=== PATIENT | female | born 1995 | race Asian ===

== ENCOUNTER 2017-01-13 12:10 | Emergency (ER) | payer BC ==
[~2017-01-13] VITALS: Ht 154.9 cm; Wt 52.0 kg
[~2017-01-13 12:10] MED LIST: ACET-1311 PO; FEXO1TAB46 PO; IBUP-1050 PO
[2017-01-13 12:16] VITALS: TEMP 36.9; Ht 154.9 cm; Wt 52.0 kg
[2017-01-13] MEDS ORDERED: IBUPROFEN 600 MG TAB PO STA (12:31)
[2017-01-13] MEDS ORDERED: LIDOCAINE/EPINEPH/TETRACAINE 1 EA SYR EXT STA (12:31)
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
--- NOTE | 2017-01-13 13:08 | DIAGNOSTIC IMAGING REPORT ---
RIGHT KNEE 3 VIEWS CLINICAL HISTORY: Fall with right knee pain. FINDINGS: AP, crosstable lateral, and sunrise views of the right knee are obtained. No prior studies are available for comparison at the time of dictation. The examination is suboptimal as the patient was unable to fully extend the knee. The skeletal structures are well mineralized. No fracture is seen. The joint spaces of the knee are well-maintained. No joint effusion is identified. The overlying soft tissues are within normal limits. IMPRESSION: No acute bony abnormality is identified in the right knee. Electronically signed by: Jeet Machado M.D. 01/13/2017 1:07 PM Dictated Date/Time: 01/13/2017 1:06 PM
--- NOTE | 2017-01-13 13:09 | DIAGNOSTIC IMAGING REPORT ---
RIGHT ELBOW 3 VIEWS CLINICAL HISTORY: Fall with right elbow pain. FINDINGS: 3 views of the right elbow are obtained No prior studies are available for comparison at the time of dictation. The skeletal structures are well mineralized. No fracture is seen. The joint spaces of the elbow are well-maintained. No joint effusion is identified. Mild dorsal soft tissue swelling is noted. IMPRESSION: Mild soft tissue swelling with no radiographic evidence of right elbow fracture. Electronically signed by: Jeet Machado M.D. 01/13/2017 1:08 PM Dictated Date/Time: 01/13/2017 1:07 PM
[2017-01-13 14:13] VITALS: BP 107/65; PULSE 65; O2SAT 99
== END 2017-01-13 14:16 | disposition home or self-care (01) ==
LOC: C.EDB 12:11 → C.EDD 14:16
DX: S50.01XA Contusion of right elbow, initial encounter (principal); S80.01XA Contusion of right knee, initial encounter; S50.311A Abrasion of right elbow, initial encounter; S80.211A Abrasion, right knee, initial encounter; V18.0XXA Pedal cycle driver injured in noncollision transport accident in nontraffic accident, initial encounter

== ENCOUNTER 2017-09-08 10:06 | Inpatient (IN) | payer BC, OTHER ==
[~2017-09-08] VITALS: Ht 154.9 cm; Wt 52.0 kg
--- NOTE | 2017-09-08 10:22 | EMERGENCY ROOM VISIT NOTE ---
History Report prepared by William: David Carr Under the Supervision of: Dr. Jarrell Capone M.D. First contact with patient: 10:13 Chief Complaint: MENTAL HEALTH EVALUATION Stated Complaint: 302 MENTAL HEALTH EVALUATION History of Present Illness The patient is a 22 year old female with a 302 warrant who presents to the Emergency Room with worsening sadness over the past few days after her boyfriend broke up with her. Per the psychiatric rifle case repairer, [facility] was at the patient's apartment prior to arrival, and the patient was crying hysterically. When asked if the patient had suicidal ideations, she said that she would take her whole bottle of Zoloft and Tylenol and get in a bath tub and "wait to ". The patient states that she did say those things, but she would not have actually done them. She states that she does not have those thoughts of hurting herself anymore. The patient says that she has not taken any pills to try to hurt herself over the past few days. She notes that she did have a suicide attempt 2 years ago [address] she lived. The patient says that she saw her psychiatrist 3 weeks ago, and saw her therapist last week. She says that nobody is hurting her. The patient denies any recent drug use, and adds that she is not drunk. She notes no chronic medical conditions. She denies any abdominal pain, rashes, or leg swelling. Source of History: patient, other (psych rifle case repairer) Onset: Over past few days Position: other (global - sadness) Quality: other (after boyfriend broke up with patient) Timing: worsening Associated Symptoms: No abdominal pain, No rash Note: Suicidal statements this morning. Denies leg swelling. Review of Systems See HPI for pertinent positives & negatives. A total of 10 systems reviewed and were otherwise negative. Past Medical & Surgical Medical Problems: (1) history of ulcers (2) Major depressive disorder, recurrent severe without psychotic features (3) none Family History Unknown Social History Smoking Status: Never Smoker Smokeless Tobacco Use: No Marital Status: single Occupation Status: [employer] student Current/Historical Medications Scheduled Sertraline (Zoloft), 25 MG PO QAM Allergies Coded Allergies: Lactose (Verified Allergy, Intermediate, LACTOSE INTOLERANT, 09/08/17) Latex1 -Allergic Contact Dermititis (Unverified Allergy, Intermediate, RASH, 09/08/17) Physical Exam Vital Signs Date Time Temp Pulse Resp B/P (MAP) Pulse Ox O2 Delivery O2 Flow Rate FiO2 09/08/17 12:21 85 20 112/76 99 Room Air 09/08/17 10:21 37.0 91 16 120/79 98 Physical Exam GENERAL: Patient is sad appearing, crying, in mild distress. HEENT: No acute trauma, normocephalic atraumatic, mucous membranes moist, no nasal congestion, no scleral icterus. NECK: No stridor, no adenopathy, no meningismus, trachea is midline. LUNGS: No dyspnea. Clear to auscultation and equal bilaterally. No wheeze, no rhonchi. HEART: Regular rate and rhythm. No murmurs, rubs, gallops appreciated. ABDOMEN: Soft, nontender, bowel sounds positive, no masses appreciated, no peritonitis. BACK: No midline tenderness, no CVA tenderness EXTREMITIES: Normal motion all extremities, no cyanosis, no edema. NEUROLOGIC: Alert and oriented, no acute motor or sensory deficits, no focal weakness, cranial nerves grossly intact. SKIN: No rash, no jaundice, no diaphoresis. PSYCH: Admits suicidal ideation with plan this morning but states this has gone away. Medical Decision & Procedures Laboratory Results 09/08/17 10:50 Red Blood Count 4.67, Mean Corpuscular Volume 83.5, Mean Corpuscular Hemoglobin 28.5, Mean Corpuscular Hemoglobin Concent 34.1, Mean Platelet Volume 9.2, Neutrophils (%) (Auto) 75.8, Lymphocytes (%) (Auto) 18.9, Monocytes (%) (Auto) 4.9, Eosinophils (%) (Auto) 0.2, Basophils (%) (Auto) 0.2, Neutrophils # (Auto) 4.06, Lymphocytes # (Auto) 1.01, Monocytes # (Auto) 0.26, Eosinophils # (Auto) 0.01, Basophils # (Auto) 0.01 09/08/17 10:50 Test 09/08/17 10:25 09/08/17 10:50 Urine Color DK YELLOW Urine Appearance CLEAR (CLEAR) Urine pH 5.5 (4.5-7.5) Urine Specific [place] 1.029 (1.000-1.030) Urine Protein 1+ (NEG) Urine Glucose (UA) NEG (NEG) Urine Ketones 3+ (NEG) Urine Occult Blood 2+ (NEG) Urine Nitrite NEG (NEG) Urine Bilirubin NEG (NEG) Urine Urobilinogen NEG (NEG) Urine Leukocyte Esterase NEG (NEG) Urine WBC (Auto) 1-5 /hpf (0-5) Urine RBC (Auto) 0-4 /hpf (0-4) Urine Hyaline Casts (Auto) 1-5 /lpf (0-5) Urine Epithelial Cells (Auto) >30 /lpf (0-5) Urine Bacteria (Auto) NEG (NEG) Urine Test NEG (NEG) Urine Opiates Screen NEG (NEG) Urine Methadone, Qualitative NEG (NEG) Urine Barbiturates NEG (NEG) Urine Phencyclidine (PCP) Level NEG (NEG) Ur Amphetamine/Methamphetamine NEG (NEG) MDMA (Ecstasy) Screen NEG (NEG) Urine Benzodiazepines Screen NEG (NEG) Urine Cocaine Metabolite NEG (NEG) Urine Marijuana (THC) NEG (NEG) White Blood Count 5.35 K/uL (4.8-10.8) Red Blood Count 4.67 M/uL (4.2-5.4) Hemoglobin 13.3 g/dL (12.0-16.0) Hematocrit 39.0 % (37-47) Mean Corpuscular Volume 83.5 fL (80-100) Mean Corpuscular Hemoglobin 28.5 pg (25-34) Mean Corpuscular Hemoglobin Concent 34.1 g/dl (32-36) Platelet Count 299 K/uL (130-400) Mean Platelet Volume 9.2 fL (7.4-10.4) Neutrophils (%) (Auto) 75.8 % Lymphocytes (%) (Auto) 18.9 % Monocytes (%) (Auto) 4.9 % Eosinophils (%) (Auto) 0.2 % Basophils (%) (Auto) 0.2 % Neutrophils # (Auto) 4.06 K/uL (1.4-6.5) Lymphocytes # (Auto) 1.01 K/uL (1.2-3.4) Monocytes # (Auto) 0.26 K/uL (0.11-0.59) Eosinophils # (Auto) 0.01 K/uL (0-0.5) Basophils # (Auto) 0.01 K/uL (0-0.2) RDW Standard Deviation 38.5 fL (36.4-46.3) RDW Coefficient of Variation 12.8 % (11.5-14.5) Immature Granulocyte % (Auto) 0.0 % Immature Granulocyte # (Auto) 0.00 K/uL (0.00-0.02) Anion Gap 10.0 mmol/L (3-11) Est Creatinine Clear Calc Drug Dose 100.1 ml/min Estimated GFR () 145.6 Estimated GFR (Non- 125.7 BUN/Creatinine Ratio 23.3 (10-20) Calcium Level 9.0 mg/dl (8.5-10.1) Total Bilirubin 0.5 mg/dl (0.2-1) Aspartate Amino Transf (AST/SGOT) 13 U/L (15-37) Alanine Aminotransferase (ALT/SGPT) 14 U/L (12-78) Alkaline Phosphatase 52 U/L (45-117) Total Protein 8.5 gm/dl (6.4-8.2) Albumin 4.5 gm/dl (3.4-5.0) Globulin 4.0 gm/dl (2.5-4.0) Albumin/Globulin Ratio 1.1 (0.9-2) Thyroid Stimulating Hormone (TSH) 1.420 uIu/ml (0.300-4.500) Salicylates Level < 1.7 mg/dl (2.8-20) Acetaminophen Level < 2 ug/ml (10-30) Ethyl Alcohol mg/dL < 3.0 mg/dl (0-3) Laboratory results as reviewed by me. ED Course 1014: The patient was evaluated in room A7. A complete history and physical exam was performed. 1144: Rosanna, the psychiatric rifle case repairer is evaluating the patient. 1330: I was notified that the patient has been accepted to [address] [place] [address] for further evaluation and treatment. Medical Decision Differential: Mood Disorder, Overdose, Infectious, Electrolyte Abnormality, Cardiac, Hepatic, Endocrine, Toxicologic, Neurologic, amongst other pathologies entertained. 22 yr old female arrives crying and clearly depressed. Admits suicide ideation with plan this morning though claims this has resolved now. I do not feel she is safe for discharge given her history and 302 petition. She had prolonged discussion with Psych Liaison and is willing to sign in and get herself help. Medically clear. A bit dehydrated but drinking and making tears thus I do not feel IV hydration required. Medication Reconcilliation Current Medication List: was personally reviewed by me Blood Pressure Screening Patient's blood pressure: Normal blood pressure Impression Primary Impression: Depression Additional Impression: Suicidal ideation Scribe Attestation The scribe's documentation has been prepared under my direction and personally reviewed by me in its entirety. I confirm that the note above accurately reflects all work, treatment, procedures, and medical decision making performed by me. Departure Information Dispostion Mental Health Acute Care (to [address] [place] [address]) Referrals No Doctor, Assigned (PCP) Patient Instructions My [facility] Problem Qualifiers
[2017-09-08] MEDS ORDERED: SERT25TA PO (10:31)
[2017-09-08 11:11] LABS: BASO % 0.2 %; BASO ABS # 0.01 K/uL (0-0.2); EOS % 0.2 %; EOS ABS # 0.01 K/uL (0-0.5); HEMOGLOBIN 13.3 g/dL (12.0-16.0); LYMPH % 18.9 %; LYMPH ABS # 1.01 K/uL (1.2-3.4); MEAN CELL VOLUME 83.5 fL (80-100); MEAN CORPUSCULAR HEMOGLOBIN 28.5 pg (25-34); MEAN CORPUSCULAR HGB CONC 34.1 g/dl (32-36); MEAN PLATELET VOLUME 9.2 fL (7.4-10.4); MONO % 4.9 %; MONO ABS # 0.26 K/uL (0.11-0.59); NEUT % 75.8 %; NEUT ABS # 4.06 K/uL (1.4-6.5); PLATELET COUNT 299 K/uL (130-400); RED CELL DISTRIBUTION WIDTH CV 12.8 % (11.5-14.5); RED CELL DISTRIBUTION WIDTH SD 38.5 fL (36.4-46.3); WHITE BLOOD COUNT 5.35 K/uL (4.8-10.8)
[2017-09-08 11:27] LABS: ALBUMIN 4.5 gm/dl (3.4-5.0); CREATININE 0.67 mg/dl (0.60-1.20); POTASSIUM 3.5 mmol/L (3.5-5.1)
[2017-09-08 11:38] LABS: TOTAL PROTEIN 8.5 gm/dl (6.4-8.2)
[2017-09-08] MEDS ORDERED: hydrOXYzine HCL 25 MG TAB PO PRN ×2 (12:00)
[2017-09-08] MEDS ORDERED: ALUMINUM/MAGNESIUM SUSP 30 ML UDC PO PRN (12:00)
[2017-09-08] MEDS ORDERED: BISMUTH SUBSALICYLATE PER ML OMNICELL CHARGE PO PRN (12:00)
[2017-09-08] MEDS ORDERED: ACETAMINOPHEN 325 MG TAB PO PRN (12:00)
[2017-09-08] MEDS ORDERED: MAGNESIUM HYDROXIDE SUSP 30 ML UDC PO PRN (12:00)
[2017-09-08] MEDS ORDERED: SODIUM CHLORIDE 0.65% NA SOLN 45 ML (OCEAN) PRN (12:00)
[2017-09-08 12:21] VITALS: O2SAT 99
[2017-09-08 13:06] VITALS: BP 113/76; PULSE 98; TEMP 37.1; Ht 154.9 cm; Wt 52.0 kg
--- NOTE | 2017-09-08 13:47 | Psychiatric History & Physical ---
History Date of Service Sep 08, 2017. Identifying Data Yenny Loomis is a 22-year-old female admitted voluntarily on Sep 08, 2017 at 12:55 who was brought to the emergency department by police after the patient called can help feeling depressed and having suicidal thoughts. Warrant was issued with the petitioners statement but the patient eventually signed in voluntarily. Information is gathered from the patient and considered to be reliable. Chief Complaint "My boyfriend and I broke up yesterday.". 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 She is currently in treatment with a nurse practitioner, Vee, at [facility], and a therapist Maude Goodman at [facility]. She reports that her mood has been up and down over recent semesters directly related to the up and down relationship she has been having with her boyfriend. Although she did not necessarily see it coming, she and her boyfriend broke up yesterday after an argument. She became extremely and acutely depressed. She spoke with her mother, roommates in the wake of the breakup but continued to cry. She did not sleep last night and started having suicidal thinking. Today, she called the crisis hotline and they sent a mobile curing room worker to her home. When the patient told him about the suicidal thinking, they filled out a warrant called the police and had her brought to the emergency department. The patient feels that she was ambushed by this as she said she had no intent to follow through on these but was honest about having the thoughts. She is attempting to minimize, not seeing the seriousness of her risk factors and wanting discharge as soon as possible. She is requesting to sign her 72 hour notice. As above, the patient says her depression has been up and down over the last several semesters. Today she describes herself as "sad but okay". She admits to suicidal thinking, admits to saying that she would cut her wrists, take an overdose and sit in the bathtub but denies that she had any intent to follow through. She reports good sleep in recent weeks getting 8 hours of sleep per night. Her appetite has been down since being on Zoloft the last 3 weeks. Her energy is okay. She is currently quite anxious and she is "freaked out about being in the hospital". She reports chronic anxiety that dates back, possibly as early as high school. She hasn't history of panic attacks that are less lately but last semester were occurring about once per week. She feels like the room is closing in, short of breath, elevated heart rate, tremors and sweating. She denies ever having had any auditory or visual hallucinations. She denies problems with anger. She does have thoughts and impulses to cut herself and will superficially scratch her arm or her leg but rarely ever breaks the skin. She says "I like the way it feels". She denies any history of eating disordered behaviors. She denies any discrete episodes of euphoric mood, sleeplessness or pleasure seeking behaviors that would be congruent with bipolar disorder. Past Psychiatric History Current OP Treatment: psychiatrist (Vee BISHOP at [facility]), therapist (Maude Goodman at [facility]) Prior OP Treatment: therapist Prior Psych Hospitalizations: none Access to a Gun: No Suicide Attempts: Yes (2-3 years ago attempted suicide by lying down in traffic ) Past Medication Trials None Past Medical/Surgical History History of Concussion/Seizure: No (1) none Allergies Allergies: Coded Allergies: Lactose (Verified Allergy, Intermediate, LACTOSE INTOLERANT, 09/08/17) Latex1 -Allergic Contact Dermititis (Unverified Allergy, Intermediate, RASH, 09/08/17) Home Medications Scheduled Sertraline (Zoloft), 25 MG PO QAM Family History Unknown Patient is adopted and knows nothing of her biological family Alcohol Use Alcohol Use In Past 12 Months: Yes ("Occasionally a mixed drink with friends" < 1x/month) AUDIT Total Score: 1 Smoking Use Smoking Status: Never Smoker Substance History Denies Personal History Lives in: [place] with roommates Childhood: Raised by her adoptive parents. She was adopted at the age of 2 or 3 from [place]. Her father when she was very young of cancer. She has 1 younger adopted sister. She reports a good relationship with her mother. Education: started college (is scheduled to graduate in December with a degree in Khmer. Current GPA 3.5 or so) Work History: Works at the [employer] on campus part-time Relationship History: never Children: none Legal History: none Psychological Trauma History: Denies Hx Traumatic Event Review of Systems Constitutional: denies no symptoms reported, denies see HPI, denies chills, denies diaphoresis, denies fever, denies malaise, denies weakness, denies other Eyes: denies: no symptoms, as stated in HPI, eye pain, tearing, itching, redness, discharge, double vision, visual changes, blurred vision, photophobia, other ENT: denies: no symptoms reported, see HPI, ear pain, ear discharge, loss of hearing, tinnitus, nasal pain, nasal congestion, rhinorrhea, epistaxis, sore throat, stidor, throat swelling, mouth pain, mouth swelling, dental pain, gum swelling, other Cardiovascular: reports: diaphoresis (with anxiety), palpitations (with anxiety ) Respiratory: reports: short of breath (with anxiety) Gastrointestinal: nausea (nausea, sometimes associated with Zoloft, other times associated with not eating) Genitourinary - Female: denies: no symptoms, see HPI, rash, amenorrhea, dysmenorrhea, menorrhagia, metrorrhagia, , vaginal bleeding, vaginal itching, vaginal discharge, vulvadynia, other Musculoskeletal: denies no symptoms reported, denies see HPI, denies back pain , denies gout, denies joint pain, denies joint swelling, denies muscle pain, denies muscle stiffness, denies neck pain, denies other Integumentary: denies no symptoms reported, denies see HPI, denies change in color, denies change in hair/nails, denies dryness, denies lesions, denies lumps , denies rash, denies other Neurologic: denies: no symptoms, see HPI, headache, numbness, paresthesias, pre -existing deficit, seizure, tingling, tremors, general weakness, tics, focal weakness, vertigo, lethargy, memory loss, dizziness, other Endocrine: denies: no symptoms, as stated in HPI, cold intolerance, heat intolerance, hair changes, goiter, polydipsia, polyuria, skin changes, other Hematologic / Lymphatic: denies: no symptoms, as stated in HPI, abnormal clotting, adenopathy, anemia, easy bleeding, easy bruising, gums bleeding, petechiae, other Examination Physical Examination Exam performed by Dr. Capone in the emergency Department has been reviewed and accepted his medical clearance for our unit Vital Signs Vital Signs Past 12 Hours Date Time Temp Pulse Resp B/P (MAP) Pulse Ox O2 Delivery O2 Flow Rate FiO2 09/08/17 13:06 37.1 98 20 113/76 09/08/17 12:21 85 20 112/76 99 Room Air 09/08/17 10:21 37.0 91 16 120/79 98 Laboratory Results Last 24 Hours Test 09/08/17 10:25 09/08/17 10:50 Urine Color DK YELLOW Urine Appearance CLEAR Urine pH 5.5 Urine Specific [place] 1.029 Urine Protein 1+ Urine Glucose (UA) NEG Urine Ketones 3+ Urine Occult Blood 2+ Urine Nitrite NEG Urine Bilirubin NEG Urine Urobilinogen NEG Urine Leukocyte Esterase NEG Urine WBC (Auto) 1-5 /hpf Urine RBC (Auto) 0-4 /hpf Urine Hyaline Casts (Auto) 1-5 /lpf Urine Epithelial Cells (Auto) >30 /lpf Urine Bacteria (Auto) NEG Urine Test NEG Urine Opiates Screen NEG Urine Methadone, Qualitative NEG Urine Barbiturates NEG Urine Phencyclidine (PCP) Level NEG Ur Amphetamine/Methamphetamine NEG MDMA (Ecstasy) Screen NEG Urine Benzodiazepines Screen NEG Urine Cocaine Metabolite NEG Urine Marijuana (THC) NEG White Blood Count 5.35 K/uL Red Blood Count 4.67 M/uL Hemoglobin 13.3 g/dL Hematocrit 39.0 % Mean Corpuscular Volume 83.5 fL Mean Corpuscular Hemoglobin 28.5 pg Mean Corpuscular Hemoglobin Concent 34.1 g/dl Platelet Count 299 K/uL Mean Platelet Volume 9.2 fL Neutrophils (%) (Auto) 75.8 % Lymphocytes (%) (Auto) 18.9 % Monocytes (%) (Auto) 4.9 % Eosinophils (%) (Auto) 0.2 % Basophils (%) (Auto) 0.2 % Neutrophils # (Auto) 4.06 K/uL Lymphocytes # (Auto) 1.01 K/uL Monocytes # (Auto) 0.26 K/uL Eosinophils # (Auto) 0.01 K/uL Basophils # (Auto) 0.01 K/uL RDW Standard Deviation 38.5 fL RDW Coefficient of Variation 12.8 % Immature Granulocyte % (Auto) 0.0 % Immature Granulocyte # (Auto) 0.00 K/uL Sodium Level 139 mmol/L Potassium Level 3.5 mmol/L Chloride Level 106 mmol/L Carbon Dioxide Level 23 mmol/L Anion Gap 10.0 mmol/L Blood Urea Nitrogen 16 mg/dl Creatinine 0.67 mg/dl Est Creatinine Clear Calc Drug Dose 100.1 ml/min Estimated GFR () 145.6 Estimated GFR (Non- 125.7 BUN/Creatinine Ratio 23.3 Random Glucose 91 mg/dl Calcium Level 9.0 mg/dl Total Bilirubin 0.5 mg/dl Aspartate Amino Transf (AST/SGOT) 13 U/L Alanine Aminotransferase (ALT/SGPT) 14 U/L Alkaline Phosphatase 52 U/L Total Protein 8.5 gm/dl Albumin 4.5 gm/dl Globulin 4.0 gm/dl Albumin/Globulin Ratio 1.1 Thyroid Stimulating Hormone (TSH) 1.420 uIu/ml Salicylates Level < 1.7 mg/dl Acetaminophen Level < 2 ug/ml Ethyl Alcohol mg/dL < 3.0 mg/dl Mental Examination During interview pt is: alert and oriented, cooperative Appearance: appropriately dressed, appropriately groomed Eye contact is: good Motor behavior is: no abnormal motor movements Speech: normal in rate, rhythm & volume Affect: depressed, flat, irritable Mood is: depressed Thought process: goal directed, clear, coherent Thought content: reality based without delusions Suicidal thought are: present, Plan: denied, Intent: denied Homicidal thoughts are: denied Hallucinations: denies auditory, denies visual Cognition: memory grossly intact, attention grossly intact, language grossly intact Intelligence estimated to be: average Insight: limited Judgement: limited Impression / Recommendations Impression 22-year-old [employer] senior, admitted on a voluntary basis after calling can help in the state of depression with suicidal thinking. She was started on Zoloft 25 mg 3 weeks ago by her outpatient provider and today we will increase this to 50 mg daily. She has already requested to submit her 72 hour notice and so we will need to get supplemental information from her mother and roommates, all of whom may be coming into the hospital to visit later today. We will coordinate her care with her current outpatient providers. She would like to continue in school and finish her college career in December. She objects to being in the hospital based on the fact she had no plan to follow through with her thoughts and is willing to continue in outpatient treatment. At this time however she requires inpatient treatment due to the risk of self-harm if discharged. Inventory Assets Strengths: Intelligence, support from family and roommates Needs: To explore additional healthy coping strategies Risk Factors Assessment : No /single/: Yes Higher / Fall in social status: No Access to guns: No Health problems: No Mental Health Diagnoses: Yes Substance use disorders: No Previous attempt: Yes Previous psychiatric stay: No Smoker: No Protective Factors Assessment : No Responsible for young children: No Employed: No Stable relationships: No Supportive family: No Recommendations (1) Major depressive disorder, recurrent severe without psychotic features 09/08 - increase Zoloft to 50 mg daily - Obtain supplemental information from patient's mother and roommates - Every 15 minute checks for safety - Encourage participation in group and individual counseling - Coordinate outpatient care with current providers - Patient has submitted 72 hour notice. Will need to continue to gather information for the need for inpatient treatment -Contact University as needed given the fact that the patient wants to continue in school this semester - Assist the patient to explore and utilize healthy coping strategies Dr. Zena Roth has personally been involved in the review of the above case and development of these recommendations. CPT Code Initial Hospital Care: 37482
[2017-09-08] MEDS ORDERED: INFLUENZA ADMINISTRATION CHARGE ONE (15:00)
[2017-09-08] MEDS ORDERED: INFLUENZA VIRUS QUAD VACCINE 0.5 ML SYR IM. ONE (15:00)
[2017-09-08] MEDS ORDERED: NURSING VERBAL MED ORDER ONE (17:45)
[2017-09-08] MEDS ORDERED: SERTRALINE HCL 50 MG TAB PO ONE (18:00)
[2017-09-09 06:49] VITALS: BP_SYST 108; BP_SYST 111; BP_DIAS 72; BP_DIAS 78; PULSE 69; PULSE 85; TEMP 36.8
--- NOTE | 2017-09-09 08:32 | Psychiatric Progress Notes ---
Progress Note Date of Service Sep 09, 2017. Interval History Yenny Loomis is a 22-year-old female admitted voluntarily on Sep 08, 2017 at 12:55 who was brought to the emergency department by police after the patient called Can Help feeling depressed and having suicidal thoughts. Warrant was issued with the petitioners statement but the patient eventually signed in voluntarily. Chief Complaint "I think things have anuj going well, I'm better, I'd like to leave". Sleep Information Total Hours of Sleep: 7.75 Meal Information Percent of Dinner Consumed: 50 Mental Status Exam During interview pt is: alert and oriented, cooperative Appearance: appropriately dressed, appropriately groomed Eye contact is: good Motor behavior is: no abnormal motor movements Speech: normal in rate, rhythm & volume Affect: depressed, flat, irritable Mood is: depressed Thought process: goal directed, clear, coherent Thought content: reality based without delusions Suicidal thought are: present, Plan: denied, Intent: denied Homicidal thoughts are: denied Hallucinations: denies auditory, denies visual Cognition: memory grossly intact, attention grossly intact, language grossly intact Intelligence estimated to be: average Insight: limited Judgement: limited Impression 22-year-old [employer] [facility] senior, admitted on a voluntary basis after calling can help in the state of depression with suicidal thinking. She was started on Zoloft 25 mg 3 weeks ago by her outpatient provider and today we will increase this to 50 mg daily. She has already requested to submit her 72 hour notice and so we will need to get supplemental information from her mother and roommates, all of whom may be coming into the hospital to visit later today. We will coordinate her care with her current outpatient providers. She would like to continue in school and finish her college career in December. She objects to being in the hospital based on the fact she had no plan to follow through with her thoughts and is willing to continue in outpatient treatment. At this time however she requires inpatient treatment due to the risk of self-harm if discharged. Plan (1) Major depressive disorder, recurrent severe without psychotic features 09/08 - Increase Zoloft to 50 mg daily - Obtain supplemental information from patient's mother and roommates - Every 15 minute checks for safety - Encourage participation in group and individual counseling - Coordinate outpatient care with current providers - Patient has submitted 72 hour notice. Will need to continue to gather information for the need for inpatient treatment - Contact University as needed given the fact that the patient wants to continue in school this semester - Assist the patient to explore and utilize healthy coping strategies Discharge / Aftercare Planning Primary Care Physician: Name: Pt couldn't remember her name Therapist: Name: Buck Santoro Date of Appointment: Sep 10, 2017 [employer] Hand: Name: None Inventory Assets Strengths: Intelligence, support from family and roommates Needs: To explore additional healthy coping strategies Risk Factors Assessment : No /single/: Yes Higher / Fall in social status: No Health problems: No Mental Health Diagnoses: Yes Substance use disorders: No Previous attempt: Yes Previous psychiatric stay: No Smoker: No Protective Factors Assessment : No Responsible for young children: No Employed: No Stable relationships: No Supportive family: No Data Vital Signs Last 24 Hrs: Date Time Temp Pulse Resp B/P (MAP) Pulse Ox O2 Delivery O2 Flow Rate FiO2 09/09/17 06:49 36.8 85 16 108/72 69 111/78 09/08/17 13:06 37.1 98 20 113/76 09/08/17 12:21 85 20 112/76 99 Room Air 09/08/17 10:21 37.0 91 16 120/79 98 Meds Administered Last 24 Hrs: Meds Administered (Past 24Hrs) Medications (Trade) Dose Ordered Sig/Franny Route Start Time Stop Time Status Last Admin Dose Admin Hydroxyzine HCl (Vistaril Tab) 50 mg HSZ PRN PO 09/08/17 12:00 10/08/17 11:59 09/08/17 21:36 50 MG Sertraline HCl (Zoloft Tab) 50 mg QAM PO 09/09/17 09:00 10/09/17 08:59 09/09/17 08:22 50 MG Sertraline HCl (Zoloft Tab) 25 mg NOW ONCE PO 09/08/17 18:00 09/08/17 18:01 DC 09/08/17 17:40 25 MG Lab Results Last 24 Hrs: Last 24 Hours Test 09/08/17 10:25 09/08/17 10:50 Urine Color DK YELLOW Urine Appearance CLEAR Urine pH 5.5 Urine Specific [place] 1.029 Urine Protein 1+ Urine Glucose (UA) NEG Urine Ketones 3+ Urine Occult Blood 2+ Urine Nitrite NEG Urine Bilirubin NEG Urine Urobilinogen NEG Urine Leukocyte Esterase NEG Urine WBC (Auto) 1-5 /hpf Urine RBC (Auto) 0-4 /hpf Urine Hyaline Casts (Auto) 1-5 /lpf Urine Epithelial Cells (Auto) >30 /lpf Urine Bacteria (Auto) NEG Urine Test NEG Urine Opiates Screen NEG Urine Methadone, Qualitative NEG Urine Barbiturates NEG Urine Phencyclidine (PCP) Level NEG Ur Amphetamine/Methamphetamine NEG MDMA (Ecstasy) Screen NEG Urine Benzodiazepines Screen NEG Urine Cocaine Metabolite NEG Urine Marijuana (THC) NEG White Blood Count 5.35 K/uL Red Blood Count 4.67 M/uL Hemoglobin 13.3 g/dL Hematocrit 39.0 % Mean Corpuscular Volume 83.5 fL Mean Corpuscular Hemoglobin 28.5 pg Mean Corpuscular Hemoglobin Concent 34.1 g/dl Platelet Count 299 K/uL Mean Platelet Volume 9.2 fL Neutrophils (%) (Auto) 75.8 % Lymphocytes (%) (Auto) 18.9 % Monocytes (%) (Auto) 4.9 % Eosinophils (%) (Auto) 0.2 % Basophils (%) (Auto) 0.2 % Neutrophils # (Auto) 4.06 K/uL Lymphocytes # (Auto) 1.01 K/uL Monocytes # (Auto) 0.26 K/uL Eosinophils # (Auto) 0.01 K/uL Basophils # (Auto) 0.01 K/uL RDW Standard Deviation 38.5 fL RDW Coefficient of Variation 12.8 % Immature Granulocyte % (Auto) 0.0 % Immature Granulocyte # (Auto) 0.00 K/uL Sodium Level 139 mmol/L Potassium Level 3.5 mmol/L Chloride Level 106 mmol/L Carbon Dioxide Level 23 mmol/L Anion Gap 10.0 mmol/L Blood Urea Nitrogen 16 mg/dl Creatinine 0.67 mg/dl Est Creatinine Clear Calc Drug Dose 100.1 ml/min Estimated GFR () 145.6 Estimated GFR (Non- 125.7 BUN/Creatinine Ratio 23.3 Random Glucose 91 mg/dl Calcium Level 9.0 mg/dl Total Bilirubin 0.5 mg/dl Aspartate Amino Transf (AST/SGOT) 13 U/L Alanine Aminotransferase (ALT/SGPT) 14 U/L Alkaline Phosphatase 52 U/L Total Protein 8.5 gm/dl Albumin 4.5 gm/dl Globulin 4.0 gm/dl Albumin/Globulin Ratio 1.1 Thyroid Stimulating Hormone (TSH) 1.420 uIu/ml Salicylates Level < 1.7 mg/dl Acetaminophen Level < 2 ug/ml Ethyl Alcohol mg/dL < 3.0 mg/dl
[2017-09-09] MEDS ORDERED: SERTRALINE HCL 50 MG TAB PO SCH ×2 (09:00)
[2017-09-09] MEDS ORDERED: SERT50TA PO (12:00)
--- NOTE | 2017-09-09 12:12 | Discharge Instructions ---
Discharge Information Report Includes Report will include the: Discharge Instructions & Summary Admission Admission Date / Time: Sep 08, 2017 at 12:55 Reason for Admission: Depressive Disorder Nos Discharge Discharge Diagnosis / Problem: Depression Condition at Discharge: Good Discharge Goals Goal(s): Improve function, Improve disease control, Learn about illness, Therapeutic intervention Activity Recommendations Activity Limitations: per Instructions/Follow-up section . Instructions / Follow-Up Instructions / Follow-Up . SPECIAL CARE INSTRUCTIONS: 1. Follow through with your scheduled aftercare appointments. If unable to keep an appointment, please call to reschedule. 2. Take your medication only as prescribed. Medication should not be changed or stopped without the approval of your doctor. In the event of worsening symptoms or concerns about side effects, contact your doctor immediately. 3. Utilize new healthy coping skills, anger management skills, and stress management skills learned during your hospitalization. Journal feelings and process them with a support person. Identify stressors or situations that may result in relapse, deterioration or inappropriate behaviors and develop a plan to deal with those issues. 4. If your coping skills are ineffective and you are in crisis, contact your outpatient providers for direction. If unable to reach your providers, please call the CAN HELP LINE AT or go to the closest Emergency Room. 5. Avoid alcohol and un-prescribed drugs. 6. You have been provided with the Mental Health Advance Directives Pamphlet for your review. AFTERCARE APPOINTMENTS: * Please call your insurance company prior to your scheduled appointment to confirm your aftercare providers are covered. Take your insurance information to your appointments. . Discharge / Aftercare Planning Primary Care Physician: Name: Pt couldn't remember her name Therapist: Name Of Therapist: Buck Santoro Date of Appointment: Sep 10, 2017 Link Trainer: Name: None . Follow-Up Care Plan for Follow-Up Care: See above. Current Hospital Diet Patient's current hospital diet: Low Lactose Diet Discharge Diet Recommended Diet: Low Lactose Diet Procedures Procedures Performed: No Pending Studies Pending Studies at Discharge: No Medical Emergencies . Who to Call and When: Medical Emergencies: For questions or emergencies related to your hospital stay, please contact the Inpatient Behavioral Health Unit at [phone]. A doctor of pharmacy is on-call 04/03 for the Behavioral Health Unit for emergencies At any time you feel your situation is an emergency, you may also call 911 immediately. . Non-Emergent Contact Non-Emergency issues call your: Primary Care Provider, Psychiatrist, Therapist Past History Medical & Surgical History: (1) none Advance Directives Existing Advance Directive: No Do You Have an Existing Mental: No Existing Living Will: No Existing Power of Customer Service Representative Teacher: No Advance Directives Info Given: To Pt/S.O. Advance Directives Reason: Declines as Mental Health Visit. Discharge Summary Admission HPI Per the Admitting provider: The patient is a 22-year-old [employer] senior, Ethiopian, with a history of depression dating back to high school. She is currently in treatment with a nurse practitioner, Vee, at [facility], and a therapist Maude Goodman at [facility]. She reports that her mood has been up and down over recent semesters directly related to the up and down relationship she has been having with her boyfriend. Although she did not necessarily see it coming, she and her boyfriend broke up yesterday after an argument. She became extremely and acutely depressed. She spoke with her mother, roommates in the wake of the breakup but continued to cry. She did not sleep last night and started having suicidal thinking. Today, she called the crisis hotline and they sent a mobile bench worker to her home. When the patient told him about the suicidal thinking, they filled out a warrant called the police and had her brought to the emergency department. The patient feels that she was ambushed by this as she said she had no intent to follow through on these but was honest about having the thoughts. She is attempting to minimize, not seeing the seriousness of her risk factors and wanting discharge as soon as possible. She is requesting to sign her 72 hour notice. As above, the patient says her depression has been up and down over the last several semesters. Today she describes herself as "sad but okay". She admits to suicidal thinking, admits to saying that she would cut her wrists, take an overdose and sit in the bathtub but denies that she had any intent to follow through. She reports good sleep in recent weeks getting 8 hours of sleep per night. Her appetite has been down since being on Zoloft the last 3 weeks. Her energy is okay. She is currently quite anxious and she is "freaked out about being in the hospital". She reports chronic anxiety that dates back, possibly as early as high school. She hasn't history of panic attacks that are less lately but last semester were occurring about once per week. She feels like the room is closing in, short of breath, elevated heart rate, tremors and sweating. She denies ever having had any auditory or visual hallucinations. She denies problems with anger. She does have thoughts and impulses to cut herself and will superficially scratch her arm or her leg but rarely ever breaks the skin. She says "I like the way it feels". She denies any history of eating disordered behaviors. She denies any discrete episodes of euphoric mood, sleeplessness or pleasure seeking behaviors that would be congruent with bipolar disorder. Admission Exam Per the Admitting provider: Please see admission H&P. Consultations None. Hospital Course (1) Major depressive disorder, recurrent severe without psychotic features 09/08 - Increase Zoloft to 50 mg daily - Obtain supplemental information from patient's mother and roommates - Every 15 minute checks for safety - Encourage participation in group and individual counseling - Coordinate outpatient care with current providers - Patient has submitted 72 hour notice. Will need to continue to gather information for the need for inpatient treatment - Contact University as needed given the fact that the patient wants to continue in school this semester - Assist the patient to explore and utilize healthy coping strategies 09/09 - Continue increased dose of sertraline, and coordinate care with outpatient therapist and psychiatrist. Patient is willing to increase the frequency of her therapy appointments. - Roommates visited, denied safety concerns, and are supportive of discharge. Family meeting held with mother today, who also denied safety concerns and was in support of discharge. She will be staying locally to help support the patient for next week. Risk Factors Assessment : No /single/: Yes Higher / Fall in social status: No Access to guns: No Health problems: No Mental Health Diagnoses: Yes Substance use disorders: No Previous attempt: Yes Family history of suicide: No Previous psychiatric stay: No Hopelessness: No Smoker: No Protective Factors Assessment : No Responsible for young children: No Employed: No Stable relationships: Yes Supportive family: Yes Good rapport with provider: Yes Absence of risk factors above: Yes (risk factors were mitigated by admission to the inpatient unit, adjusting medications to target depressive symptoms, involving her in groups and therapy on the unit, working on healthy coping skills and the discharge safety plan, a family meeting with her mother, and coordinating care with her outpatient providers. She has consistently denied suicidal thoughts here, has been calm and cooperative, is performing ADLs independently, is making plans for the future, and is willing to follow-up with outpatient providers. Her roommates and mother have visited, are supportive, are in support of discharge, and deny any acute safety concerns. The patient has consistently denied suicidal thoughts since admission, is requesting discharge, and as she is no longer at acute risk of harm to herself, can be managed as an outpatient at this time. She does not have risk factors for harm to others.) Day of Discharge Assessment Day of discharge assessment: Patient was seen & assessed interval progress reviewed with Treatment Team. Staff report she has been upset that she was admitted and has consistently denied suicidal thoughts. She signed in voluntarily on 09/08/2017, immediately submitted a 72 hour notice requesting to withdrawal from treatment. Her roommates and friends visited last evening, denied any safety concerns, and were in support of her being discharged. She was up early this morning studying. Her mother came from [place], and they had a family meeting today. They discussed her stressors, primarily the breakup with her boyfriend, and her mother denied any safety concerns and felt she was safe for discharge. Mother will be staying locally for several days to help support the patient. On my assessment, the patient denies any thoughts of harming herself, feels mood is actually worse due to being in the hospital, and states that she was never suicidal and was threatened by the can help worker that if she did not sign in voluntarily they would force her to be hospitalized. She says she never felt she needed to come to the hospital, and had called the crisis line "just to have someone to talk to." She again describes the circumstances that led to her admission, says she was upset about a break up with her boyfriend, was up all night talking to roommates and crying , and then everyone fell asleep, so she cleaned "my entire house from top to bottom, did my dishes and laundry, read a book, watched TV, and was feeling very anxious, needed someone to talk to, that's when I called the hotline." She says that she admitted to them she had had thoughts of being , but denied that she ever had a plan or any intent to harm herself, and that they asked her what she will do if she tried to end her life, so she answered with various ways she could take her life, but denied that she had ever consider doing this prior to the conversation. She is very upset that the police came and got her. She continues to feel she should not have been admitted as she doesn't want to harm herself. She says she "wants to live," and is making plans for the future, and just had a meeting with her mother which she felt went well. She is working on plans to "better deal with stress," such as "putting my mental health first," meaning making time to take care of herself, for example by going home for spring instead of traveling, in order to allow herself to recharge. She continues to deny SI, and is working on her safety plan. She is requesting discharge today, and is able to review her safety plan, including talking to roommates, her mother, her therapist, using her various coping skills or returning to the emergency room she feels unsafe. Well nourished, well developed female appearing stated age. Casually dressed and adequately groomed. Calm and cooperative. Seated in NAD, with fair eye contact and no abnormal movements. Speech is normal rate, volume, and tone. Mood is "good, fine," and affect is euthymic, stable and congruent. Thoughts are linear, logical and goal directed. The patient denied suicidal and homicidal ideation and was able to safety plan. No paranoia, delusions, or hallucinations, and did not appear to be responding to internal stimuli. Cognition was grossly intact. Alert and oriented to person, place and time. Intelligence is consistent with level of education. Insight and and judgment are fair. Laboratory Test 09/08/17 10:25 09/08/17 10:50 Urine Color DK YELLOW Urine Appearance CLEAR Urine pH 5.5 Urine Specific [place] 1.029 Urine Protein 1+ Urine Glucose (UA) NEG Urine Ketones 3+ Urine Occult Blood 2+ Urine Nitrite NEG Urine Bilirubin NEG Urine Urobilinogen NEG Urine Leukocyte Esterase NEG Urine WBC (Auto) 1-5 Urine RBC (Auto) 0-4 Urine Hyaline Casts (Auto) 1-5 Urine Epithelial Cells (Auto) >30 Urine Bacteria (Auto) NEG Urine Test NEG Urine Opiates Screen NEG Urine Methadone, Qualitative NEG Urine Barbiturates NEG Urine Phencyclidine (PCP) Level NEG Ur Amphetamine/Methamphetamine NEG MDMA (Ecstasy) Screen NEG Urine Benzodiazepines Screen NEG Urine Cocaine Metabolite NEG Urine Marijuana (THC) NEG White Blood Count 5.35 Red Blood Count 4.67 Hemoglobin 13.3 Hematocrit 39.0 Mean Corpuscular Volume 83.5 Mean Corpuscular Hemoglobin 28.5 Mean Corpuscular Hemoglobin Concent 34.1 Platelet Count 299 Mean Platelet Volume 9.2 Neutrophils (%) (Auto) 75.8 Lymphocytes (%) (Auto) 18.9 Monocytes (%) (Auto) 4.9 Eosinophils (%) (Auto) 0.2 Basophils (%) (Auto) 0.2 Neutrophils # (Auto) 4.06 Lymphocytes # (Auto) 1.01 Monocytes # (Auto) 0.26 Eosinophils # (Auto) 0.01 Basophils # (Auto) 0.01 RDW Standard Deviation 38.5 RDW Coefficient of Variation 12.8 Immature Granulocyte % (Auto) 0.0 Immature Granulocyte # (Auto) 0.00 Sodium Level 139 Potassium Level 3.5 Chloride Level 106 Carbon Dioxide Level 23 Anion Gap 10.0 Blood Urea Nitrogen 16 Creatinine 0.67 Est Creatinine Clear Calc Drug Dose 100.1 Estimated GFR () 145.6 Estimated GFR (Non- 125.7 BUN/Creatinine Ratio 23.3 Random Glucose 91 Calcium Level 9.0 Total Bilirubin 0.5 Aspartate Amino Transferase (AST) 13 Alanine Aminotransferase (ALT) 14 Alkaline Phosphatase 52 Total Protein 8.5 Albumin 4.5 Globulin 4.0 Albumin/Globulin Ratio 1.1 Thyroid Stimulating Hormone (TSH) 1.420 Salicylates Level < 1.7 Acetaminophen Level < 2 Ethyl Alcohol mg/dL < 3.0 Total Time Total Time Spent (min): Greater than 30 minutes Total Time Included: examination of the patient, discharge planning, medication reconciliation Tobacco Cessation at Discharge Smoking Status: Never Smoker FDA approved Prescription: non-smoker
== END 2017-09-09 13:40 | disposition home or self-care (01) | DRG 885 ==
LOC: C.EDB 10:07 → C.MHU 12:55
PROVIDERS: ADMIT Psychiatry & Neurology Child & Adolescent Psychiatry; ATTEND Psychiatry & Neurology Psychiatry
DX: F33.2 Major depressive disorder, recurrent severe without psychotic features (principal); R45.851 Suicidal ideations; Z79.899 Other long term (current) drug therapy